=== PATIENT | male | born 1955 | race Caucasian/White ===

== ENCOUNTER → 2016-06-27 | Day surgery (SDC) | payer OTHER ==
[~2016-06-27] MED LIST: ATEN-100 PO; BENI40TA30 PO; BUPIVACAINE/EPINEPHRINE 0.5% PF 30 ML VIAL ONE; KETOROLAC TROMETHAMINE 30 MG/ML (IVP) VIAL IV PUSH ONE; LACTATED RINGER'S 1000 ML INJ 1,000 ML ONE; ONDANSETRON HCL 4 MG/2 ML VIAL IV PUSH ONE; PROPOFOL 200 MG/20 ML AMP IV ONE; ceFAZolin INJ 1,000 MG VIAL ONE
--- NOTE | 2016-06-28 14:30 | MP ---
cc: FABIAN JESUS DATE OF SURGERY: 06/27/2016 PREOPERATIVE DIAGNOSIS: Right knee medial meniscus tear right knee para meniscal cyst. POSTOPERATIVE DIAGNOSES Right knee medial meniscus tear right knee para meniscal cyst. PROCEDURE Right knee arthroscopic partial medial meniscectomy, right knee open excision of para meniscal cyst. SURGEON Dr. Fabian Jesus. PARTS RUNNER: DORENE Akhtar ANESTHESIA General. REVIEW OF SYSTEMS Less than 50 cc. TOURNIQUET TIME: Zero minutes. IDENTIFICATION This patient is a 60-year male with persistence of the right knee pain, he is followed by the undersigned at [facility] [place], [place]. Clinical exam as well as MRI confirmed the above the above-named findings counseled as and alternatives of named surgical procedure, he did wish to proceed with surgery. PROCEDURE IN DETAIL: A written consent obtained. The patient identified by name, taken to the supine on the table. General anesthesia was administered as well as 1 gram of IV Ancef. The right thigh carefully placed in well-padded leg toribio right lower tree prepped and draped using as alcohol, Hibiclens solution and DuraPrep solution. After appropriate time-out was performed a medial and lateral parapatellar arthroscope parapatellar arthroscope portal established. The patellofemoral joint revealed mild grade 2 chondromalacia medial compartment revealed a large complex tear of posterior horn of medial meniscus. Biter followed by an. Shaver was introduced into the medial compartment for a partial meniscectomy. The meniscal rim was probed and stable meniscectomy was evidence of diffuse grade 2 and early grade 3 chondromalacia changes medial femoral condyle intercondylar notch revealed the anterior toolroom clerk cruciate ligaments to be intact lateral compartment showed minimal chondromalacia of meniscal pathology at this point the arthroscopic portals were closed with 3-0 Prolene suture. Attention was turned the medial aspect of the right knee and open lunches large incision made over the medial aspect of the right knee. Careful dissection was carried down from the joint space seeking the PA cystic structure was identified and a Metzenbaum scissors was used to circumferentially dissected around the cyst and a 10 blade skin was used to excise the cyst. The cyst itself was sent to pathology. The surgical wounds thoroughly irrigated sterile saline solution. The capsule of the knee joint was then closed with #1 Vicryl suture. The Celsius layer was closed 3-0 Vicryl suture. Skin was closed with Dermabond. Dressing applied. The patient on procedure with no intraoperative noted. Rusty Keane physician fitter's assistant was present. The tear of the therapeutic seen to include patient positioning procedure. The medical necessity of physician fitter's assistant indicated in the open excision of the cyst as he provided appropriate closure traction to use safely that the pain visualization and allow for complete excision. MD ALICIA Singh/dee dee /10:48 AM /2:05 PM
== END | disposition home or self-care (01) ==
LOC: ESDC 09:25
PROVIDERS: ATTEND Orthopaedic Surgery Sports Medicine
DX: S83.231A Complex tear of medial meniscus, current injury, right knee, initial encounter (principal); M67.461 Ganglion, right knee
CPT/HCPCS: 01400; 27347; 29881; 88304; J0690; J1885; J2405; J3010; J7120